=== PATIENT | female | born 2000 | race Caucasian/White ===

== ENCOUNTER 2024-07-23 21:40 | Emergency (ER) | payer MEDICAID ==
[~2024-07-23] VITALS: Ht 165.1 cm; Wt 58.0 kg
[2024-07-23 21:44] VITALS: TEMP 98.6; O2SAT 97
[2024-07-24] MEDS: ACETAMINOPHEN 325MG TABLET PO ONE (01:13)
[2024-07-24] MEDS ORDERED: BENZ100C86 MT (01:48)
[2024-07-24 02:07] VITALS: BP 129/72; PULSE 83; RESP 20; O2SAT 99
== END 2024-07-24 02:09 | disposition home or self-care (01) ==
LOC: ER 21:40
DX: B34.9 Viral infection, unspecified (principal); F41.9 Anxiety disorder, unspecified
CPT/HCPCS: 71045; 99283